=== PATIENT | female | born 1990 | race Caucasian/White ===

== ENCOUNTER 2016-12-22 09:59 | Emergency (ER) | payer MEDICAID, OTHER ==
[2016-12-22] MEDS ORDERED: Sodium Chloride 0.9% 1,000 ML IV STA (10:33)
[2016-12-22] MEDS ORDERED: Ondansetron 4 MG/2 ML SDV IVPUSH ONE (10:33)
[2016-12-22] MEDS ORDERED: HYDROmorphone 0.5 MG/0.5 ML Syringe IVPUSH ONE ×2 (10:34→12:53)
[2016-12-22] MEDS: Sodium Chloride 0.9% 10 ML Syringe FLUSH PRN ×2 (10:40→12:38)
[2016-12-22 11:17] VITALS: BP 114/72
--- NOTE | 2016-12-22 11:21 | EDM.PDOC ---
ED HPI GI/ABDOMINAL - General Chief Complaint: Abdominal Pain Stated Complaint: LOWER ABD PAIN Time Seen by Provider: 12/22/16 10:08 Source of Information: Reports: Patient History Limitations: Reports: No limitations - History of Present Illness INITIAL COMMENTS - FREE TEXT/NARRATIVE: The patient presents with left lower abdominal pain. This started a couple days ago. It is a constant pain. It is a sharp pain. She has some nausea but no vomiting. She has no diarrhea. She has no dysuria. She has no hematuria. She had a baby a few months ago and she is breast feeding. She is having normal bowel movements. Timing/Duration: Reports: Day(s): (2) Location: [facility] Quality: Reports: stabbing Severity: moderate Context: Denies: sick contact, bad/questionable food, out of country travel, recent surgery, recent trauma, lifting, activity/exercise Associated Symptoms (-Female): Reports: nausea/vomiting. Denies: back pain, constipation, diarrhea, fever/chills, loss of appetite - Related Data Allergies/ADRs: Allergies Allergy/AdvReac Type Severity Reaction Status Date / Time No Known Allergies Allergy Verified 12/22/16 10:16 Home Meds: Home Meds Acetaminophen [Tylenol Extra Strength] 1,000 mg PO Q4H PRN 12/22/16 [History] Ciprofloxacin HCl [Cipro] 500 mg PO BID #20 tablet 12/22/16 [Rx] Ondansetron [Zofran ODT] 4 mg PO Q6H PRN #20 tab.dis 12/22/16 [Rx] metroNIDAZOLE [Flagyl] 500 mg PO Q8H #30 tablet 12/22/16 [Rx] oxyCODONE HCl/Acetaminophen [Percocet 5-325 mg Tablet] 1 - 2 each PO Q6HR PRN # 20 tablet 12/22/16 [Rx] Past Medical History - Past Health History Medical/Surgical History: Denies Medical/Surgical History HEENT History: Reports: Other (see below) Other HEENT History: wisdom teeth removed. Gastrointestinal History: Reports: Diverticulosis, Other (see below) Other Gastrointestinal History: diverticulitis, gastric ulcers. 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: Endocrine/Metabolic History: Reports: Diabetes, gestational - Infectious Disease History Infectious Disease History: Reports: Chicken pox, Shingles - Past Surgical History HEENT Surgical History: Reports: Adenoidectomy Social & Family History - Family History Family Medical History: Noncontributory - Tobacco Use Smoking Status *Q: Never Smoker Second Hand Smoke Exposure: No - Caffeine Use Caffeine Use: Reports: Soda - Recreational Drug Use Recreational Drug Use: No ED ROS GENERAL - Review of Systems Review Of Systems: See Below Constitutional: Reports: no symptoms HEENT: Reports: No symptoms Respiratory: Reports: no symptoms Cardiovascular: Reports: No symptoms Endocrine: Reports: no symptoms GI/Abdominal: Reports: Abdominal pain, Nausea. Denies: Vomiting : Reports: no symptoms Musculoskeletal: Reports: no symptoms Skin: Reports: no symptoms Neurological: Reports: no symptoms ED EXAM, GI/ABD - Physical Exam Exam: See Below Exam Limited By: No limitations General Appearance: alert, no apparent distress Ears: normal external exam Nose: normal inspection Head: atraumatic, normocephalic Neck: normal inspection Respiratory/Chest: no respiratory distress, lungs clear, normal breath sounds Cardiovascular: regular rate, rhythm, no edema, no murmur GI/Abdominal: soft, no organomegaly, tenderness (Moderate pain upon palpation to the LLQ) Back Exam: normal inspection Extremities: normal inspection Course - Vital Signs Last Recorded V/S: Last Vital Signs Temp 97.6 F 12/22/16 10:05 Pulse 76 12/22/16 11:17 Resp 16 12/22/16 11:17 BP 114/72 12/22/16 11:17 Pulse Ox 99 12/22/16 11:17 - Orders/Labs/Meds Orders: Active Orders 24 hr Category Date Time Status Peripheral IV Care [RC] . DIRECTED Care 12/22/16 10:33 Active Sodium Chloride 0.9% [Saline Flush] Med 12/22/16 10:33 Active 10 ml FLUSH ASDIRECTED PRN ED Antiemetic Medication Reflex [OM.PC] Stat Oth 12/22/16 10:34 Ordered Peripheral IV Insertion Adult [OM.PC] Stat Oth 12/22/16 10:33 Ordered Medication Orders Sodium Chloride (Saline Flush) 10 ml FLUSH ASDIRECTED PRN PRN Reason: Keep Vein Open Last Admin: 12/22/16 12:38 Dose: 10 ml Admin: 12/22/16 10:40 Dose: 10 ml Labs: Laboratory Tests 12/22/16 12/22/16 12/22/16 Range/Units 10:30 10:40 10:40 WBC 11.37 H (3.98-10.04) K/mm3 RBC 4.93 (3.98-5.22) M/mm3 Hgb 14.2 (11.2-15.7) gm/L Hct 42.3 (34.1-44.9) % MCV 85.8 (79.4-94.8) fl MCH 28.8 (25.6-32.2) pg MCHC 33.6 (32.2-35.5) g/dl RDW Std Deviation 41.2 (36.4-46.3) fL Plt Count 270 (182-369) K/mm3 MPV 11.1 (9.4-12.3) fl Neut % (Auto) 77.9 H (34.0-71.1) % Lymph % (Auto) 12.1 L (19.3-51.7) % Nobles % (Auto) 8.8 (4.7-12.5) % Eos % (Auto) 0.8 (0.7-5.8) Baso % (Auto) 0.3 (0.1-1.2) % Neut # 8.86 H (1.56-6.13) K/mm3 Lymph # 1.38 (1.18-3.74) K/mm3 Nobles # 1.00 H (0.24-0.36) K/mm3 Eos # 0.09 (0.04-0.36) K/mm3 Baso # 0.03 (0.01-0.08) K/mm3 Sodium 142 (136-145) mEq/L Potassium 3.8 (3.5-5.1) mEq/L Chloride 106 (98-107) mEq/L Carbon Dioxide 26 (21-32) mEq/L Anion Gap 13.8 (5-15) BUN 12 (7-18) mg/dL Creatinine 0.8 (0.55-1.02) mg/dL Est Cr Clr Drug Dosing 94.21 mL/min Estimated GFR (MDRD) > 60 (>60) mL/min BUN/Creatinine Ratio 15.0 (14-18) Glucose 86 (74-106) mg/dL Calcium 8.7 (8.5-10.1) mg/dL Total Bilirubin 0.7 (0.2-1.0) mg/dL AST 11 L (15-37) U/L ALT 15 (14-59) U/L Alkaline Phosphatase 102 (46-116) U/L Total Protein 7.5 (6.4-8.2) g/dl Albumin 3.8 (3.4-5.0) g/dl Globulin 3.7 gm/dL Albumin/Globulin Ratio 1.0 (1-2) Lipase 78 (73-393) U/L HCG, Qual (NEGATIVE) Urine Color Yellow (Yellow) Urine Appearance Clear (Clear) Urine pH 6.0 (5.0-8.0) Ur Specific [place] > or = 1.030 (1.005-1.030) Urine Protein 1+ H (Negative) Urine Glucose (UA) Negative (Negative) Urine Ketones Negative (Negative) Urine Occult Blood Negative (Negative) Urine Nitrite Negative (Negative) Urine Bilirubin Negative (Negative) Urine Urobilinogen 0.2 (0.2-1.0) Ur Leukocyte Esterase Negative (Negative) Urine RBC Not seen (0-5) /hpf Urine WBC 0-5 (0-5) /hpf Ur Epithelial Cells 0-5 (0-5) /hpf Urine Bacteria Few (FEW) /hpf Urine Mucus Few (FEW) /hpf 12/22/16 Range/Units 10:40 WBC (3.98-10.04) K/mm3 RBC (3.98-5.22) M/mm3 Hgb (11.2-15.7) gm/L Hct (34.1-44.9) % MCV (79.4-94.8) fl MCH (25.6-32.2) pg MCHC (32.2-35.5) g/dl RDW Std Deviation (36.4-46.3) fL Plt Count (182-369) K/mm3 MPV (9.4-12.3) fl Neut % (Auto) (34.0-71.1) % Lymph % (Auto) (19.3-51.7) % [place]les % (Auto) (4.7-12.5) % Eos % (Auto) (0.7-5.8) Baso % (Auto) (0.1-1.2) % Neut # (1.56-6.13) K/mm3 Lymph # (1.18-3.74) K/mm3 [place]les # (0.24-0.36) K/mm3 Eos # (0.04-0.36) K/mm3 Baso # (0.01-0.08) K/mm3 Sodium (136-145) mEq/L Potassium (3.5-5.1) mEq/L Chloride (98-107) mEq/L Carbon Dioxide (21-32) mEq/L Anion Gap (5-15) BUN (7-18) mg/dL Creatinine (0.55-1.02) mg/dL Est Cr Clr Drug Dosing mL/min Estimated GFR (MDRD) (>60) mL/min BUN/Creatinine Ratio (14-18) Glucose (74-106) mg/dL Calcium (8.5-10.1) mg/dL Total Bilirubin (0.2-1.0) mg/dL AST (15-37) U/L ALT (14-59) U/L Alkaline Phosphatase (46-116) U/L Total Protein (6.4-8.2) g/dl Albumin (3.4-5.0) g/dl Globulin gm/dL Albumin/Globulin Ratio (1-2) Lipase (73-393) U/L HCG, Qual Negative (NEGATIVE) Urine Color (Yellow) Urine Appearance (Clear) Urine pH (5.0-8.0) Ur Specific [place] (1.005-1.030) Urine Protein (Negative) Urine Glucose (UA) (Negative) Urine Ketones (Negative) Urine Occult Blood (Negative) Urine Nitrite (Negative) Urine Bilirubin (Negative) Urine Urobilinogen (0.2-1.0) Ur Leukocyte Esterase (Negative) Urine RBC (0-5) /hpf Urine WBC (0-5) /hpf Ur Epithelial Cells (0-5) /hpf Urine Bacteria (FEW) /hpf Urine Mucus (FEW) /hpf Meds: Medications Generic Name Dose Route Start Last Admin Trade Name Freq PRN Reason Stop Dose Admin Sodium Chloride 10 ml 12/22/16 10:33 12/22/16 12:38 Saline Flush FLUSH 10 ml ASDIRECTED PRN Administration Keep Vein Open Discontinued Medications Generic Name Dose Route Start Last Admin Trade Name Freq PRN Reason Stop Dose Admin Diatrizoate Meglum/Diatrizoate Sod 120 ml 12/22/16 11:23 12/22/16 12:37 Gastrografin 37% PO 12/22/16 11:24 90 ml ONETIME ONE Administration Hydromorphone HCl 0.5 mg 12/22/16 10:34 12/22/16 10:46 Dilaudid IVPUSH 12/22/16 10:35 0.5 mg ONETIME ONE Administration Hydromorphone HCl 0.5 mg 12/22/16 12:53 12/22/16 12:58 Dilaudid IVPUSH 12/22/16 12:54 0.5 mg ONETIME ONE Administration Sodium Chloride 1,000 mls @ 1,000 mls/hr 12/22/16 10:33 12/22/16 10:48 Normal Saline IV 12/22/16 11:32 1,000 mls/hr .BOLUS STA Administration Iopamidol 150 ml 12/22/16 11:23 12/22/16 12:37 Isovue-300 (61%) IVPUSH 12/22/16 11:24 125 ml ONETIME ONE Administration Ondansetron HCl 4 mg 12/22/16 10:33 12/22/16 10:44 Zofran IVPUSH 12/22/16 10:34 4 mg ONETIME ONE Administration Sodium Chloride 10 ml 12/22/16 11:23 12/22/16 13:01 Saline Flush FLUSH 12/22/16 11:24 10 ml ONETIME ONE Administration - Re-Assessments/Exams Free Text/Narrative Re-Assessment/Exam: 12/22/16 11:24 I ordered an IV NS 1L bolus, zofran 4mg IV, and dilaudid 0.5mg IV. 12/22/16 13:21 Her WBC was elevated at 11.37. Her CMP looks good. Her HCG is negative. Her UA shows no UTI. She had more pain so I ordered more dilaudid 0.5mg IV. The CT shows bowel wall thickening and surrounding inflammatory change at the junction of the descending and sigmoid colon. Minimal diverticulosis seen in this area and fingings presumably due to diverticulitis. Recommend treatment as diverticulitis and endoscopy when patient's symptoms improved to make sure findings resovle and do not represent other etiology. I will get her on flagyl and cipro and some thing for pain. Departure - Departure Time of Disposition: 13:35 Disposition: Home, Self-Care 01 Condition: good Clinical Impression: Diverticulitis Qualifiers: Diverticulitis site: large intestine Diverticulitis bleeding: without bleeding Diverticulitis complication: without perforation or abscess Qualified Code(s): K57.32 - Diverticulitis of large intestine without perforation or abscess without bleeding Prescriptions: oxyCODONE HCl/Acetaminophen [Percocet 5-325 mg Tablet] 1 - 2 each PO Q6HR PRN # 20 tablet PRN Reason: Pain Ciprofloxacin HCl [Cipro] 500 mg PO BID #20 tablet Ondansetron [Zofran ODT] 4 mg PO Q6H PRN #20 tab.dis PRN Reason: Nausea/Vomiting metroNIDAZOLE [Flagyl] 500 mg PO Q8H #30 tablet Referrals: Elis Rivera, CR[employer] IRONER OPERATOR [Primary Care Provider] - 1 Week Forms: ED Department Discharge Additional Instructions: Take the medication as prescribed. Please return if you are worse. Follow up with Elis Rivera in 1 week. Do not nurse or pump and dump when taking the medications. - My Orders Last 24 Hours: My Active Orders 12/22/16 10:33 Peripheral IV Care [RC] . DIRECTED Sodium Chloride 0.9% [Saline Flush] 10 ml FLUSH ASDIRECTED PRN Peripheral IV Insertion Adult [OM.PC] Stat 12/22/16 10:34 ED Antiemetic Medication Reflex [OM.PC] Stat - Assessment/Plan Last 24 Hours: My Active Orders 12/22/16 10:33 Peripheral IV Care [RC] . DIRECTED Sodium Chloride 0.9% [Saline Flush] 10 ml FLUSH ASDIRECTED PRN Peripheral IV Insertion Adult [OM.PC] Stat 12/22/16 10:34 ED Antiemetic Medication Reflex [OM.PC] Stat
[2016-12-22] MEDS ORDERED: Sodium Chloride 0.9% 10 ML Syringe FLUSH ONE (11:23)
[2016-12-22] MEDS ORDERED: Iopamidol 612 MG/ML 150 ML Bottle IVPUSH ONE (11:23)
[2016-12-22] MEDS ORDERED: Diatrizoate Meglumine/Diatrizoate Sodium 37% 120 ML Bottle PO ONE (11:23)
--- NOTE | 2016-12-22 13:01 | CT ---
CT abdomen and pelvis Technique: Multiple axial sections were obtained from above the dome of the diaphragm inferiorly through the pubic symphysis. Intravenous and oral contrast was utilized. Delayed images were obtained through the bladder. Findings: Diffuse bowel wall thickening seen at the junction of the descending and sigmoid colon. Several diverticuli seen in this region and findings may relate to diverticulitis. Inflammatory change is seen around the sigmoid colon. Visualized lung bases are clear. Low-density lesion noted within the right lobe of the liver. Uncertain if this is a cyst or possibly small hemangioma. Liver is otherwise unremarkable. Spleen appears within normal limits. Adrenal glands show no nodule. Pancreas appears within normal limits. Aorta shows no aneurysmal dilatation. No retroperitoneal adenopathy or mesenteric abnormalities are seen. Appendix is seen which appears normal. No pelvic mass is seen. Free fluid seen within the pelvis which does not appear to be complicated and likely incidental. Delayed images show contrast within the distal ureters and within the bladder. Bone window settings were reviewed which appear within normal limits for the patient's age. Impression: 1. Bowel wall thickening and surrounding inflammatory change at the junction of the descending and sigmoid colon. Minimal diverticulosis seen in this area and findings presumably due to diverticulitis. Recommend treatment as diverticulitis and endoscopy when patient's symptoms improved to make sure findings resolve and do not represent other etiology. 2. Free fluid within the pelvis believed to be physiologic. 3. Other incidental findings as described above. Diagnostic code #3
== END 2016-12-22 13:41 | disposition home or self-care (01) ==
LOC: JD.ED 09:59
DX: K57.32 Diverticulitis of large intestine without perforation or abscess without bleeding (principal)
CPT/HCPCS: 36415; 74177; 80053; 81001; 83690; 84703; 85025; 96361; 96374; 96375; 96376; 99284; J1170; J2405; J7040; J7050; Q9963; Q9967

== ENCOUNTER 2017-07-26 02:23 | Emergency (ER) | payer OTHER ==
[2017-07-26] MEDS ORDERED: Alum Hydrox/Mag Hydrox/Simeth 30 ML, Lidocaine 2% 15 ML PO ONE ×2 (02:47)
--- NOTE | 2017-07-26 02:57 | EDM.PDOC ---
ED HPI GENERAL MEDICAL PROBLEM - General Chief Complaint: Chest Pain Stated Complaint: CHEST PAIN Time Seen by Provider: 07/26/17 02:34 Source of Information: Reports: Patient History Limitations: Reports: No Limitations - History of Present Illness INITIAL COMMENTS - FREE TEXT/NARRATIVE: This is a 26-year-old female. She says she's been seen multiple times here due to chest pain. All the workups have been negative thus far. Apparently she woke up this morning with a start, was anxious was breathing rapidly got numb in her arms and was experiencing epigastric chest pain. The chest pain does not radiate doesn't go into her arms and legs neck or jaw there is no sweating with it. After a few minutes apparently the symptoms seemed to subside and the chest pain subsided but she comes to the ER for evaluation. She has no history of anxiety but she does have a history of reflux especially when she was . She states she has a little residual of that epigastric pain even now. She does not appear to be anxious does not appear to be short of breath. No recent history of cold scoffs fever or chills nausea or vomiting. - Related Data Allergies Allergy/AdvReac Type Severity Reaction Status Date / Time No Known Allergies Allergy Verified 07/26/17 02:30 Home Meds: Home Meds Escitalopram [Lexapro] 10 mg PO DAILY 07/26/17 [History] Past Medical History - Past Health History Medical/Surgical History: Denies Medical/Surgical History HEENT History: Reports: Other (See Below) Other HEENT History: wisdom teeth removed. Gastrointestinal History: Reports: Diverticulosis, Other (See Below) Other Gastrointestinal History: diverticulitis, gastric ulcers. 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: Endocrine/Metabolic History: Reports: Diabetes, Gestational - Infectious Disease History Infectious Disease History: Reports: Chicken Pox, Shingles - Past Surgical History HEENT Surgical History: Reports: Adenoidectomy Social & Family History - Family History Family Medical History: Noncontributory - Tobacco Use Smoking Status *Q: Never Smoker Second Hand Smoke Exposure: No - Caffeine Use Caffeine Use: Reports: Soda - Recreational Drug Use Recreational Drug Use: No ED ROS GENERAL - Review of Systems Review Of Systems: See Below Constitutional: Denies: Fever, Chills HEENT: Reports: No Symptoms Respiratory: Reports: Shortness of Breath Cardiovascular: Reports: Chest Pain Endocrine: Reports: No Symptoms GI/Abdominal: Reports: No Symptoms : Reports: No Symptoms Musculoskeletal: Reports: No Symptoms Skin: Reports: No Symptoms Neurological: Reports: Other (Numbness in her upper extremities during the spells) Psychiatric: Reports: No Symptoms Hematologic/Lymphatic: Reports: No Symptoms ED EXAM, GENERAL - Physical Exam Exam: See Below Exam Limited By: No Limitations General Appearance: Alert, WD/WN, No Apparent Distress Eye Exam: Bilateral Eye: Normal Inspection Ears: Normal External Exam Nose: Normal Inspection Throat/Mouth: Normal Inspection, Normal Lips, Normal Voice, No Airway Compromise Head: Normocephalic Neck: Supple Respiratory/Chest: No Respiratory Distress, Lungs Clear, Normal Breath Sounds, Other (Palpation of the chest and the ribs does not cause any significant symptoms) Cardiovascular: Regular Rate, Rhythm, No Murmur GI/Abdominal: Soft, Non-Tender, Other (No area that I palpated including the right upper quadrant seems to be tender on palpation) Back Exam: Full Range of Motion Extremities: Normal Inspection, Normal Range of Motion Neurological: Alert, Oriented Psychiatric: Normal Affect, Normal Mood Skin Exam: Warm, Dry Course - Vital Signs Last Recorded V/S: Last Vital Signs Temp 96.3 F 07/26/17 02:26 Pulse 71 07/26/17 03:51 Resp 18 07/26/17 03:51 BP 112/75 07/26/17 03:51 Pulse Ox 98 07/26/17 03:51 - Orders/Labs/Meds Labs: Laboratory Tests 07/26/17 07/26/17 Range/Units 03:00 03:00 WBC 9.86 (3.98-10.04) K/mm3 RBC 4.67 (3.98-5.22) M/mm3 Hgb 13.5 (11.2-15.7) gm/L Hct 39.5 (34.1-44.9) % MCV 84.6 (79.4-94.8) fl MCH 28.9 (25.6-32.2) pg MCHC 34.2 (32.2-35.5) g/dl RDW Std Deviation 42.2 (36.4-46.3) fL Plt Count 290 (182-369) K/mm3 MPV 10.8 (9.4-12.3) fl Neut % (Auto) 68.8 (34.0-71.1) % Lymph % (Auto) 21.7 (19.3-51.7) % [place] % (Auto) 8.0 (4.7-12.5) % Eos % (Auto) 1.1 (0.7-5.8) Baso % (Auto) 0.3 (0.1-1.2) % Neut # (Auto) 6.78 H (1.56-6.13) K/mm3 Lymph # (Auto) 2.14 (1.18-3.74) K/mm3 [place] # (Auto) 0.79 H (0.24-0.36) K/mm3 Eos # (Auto) 0.11 (0.04-0.36) K/mm3 Baso # (Auto) 0.03 (0.01-0.08) K/mm3 Sodium 141 (136-145) mEq/L Potassium 3.7 (3.5-5.1) mEq/L Chloride 105 (98-107) mEq/L Carbon Dioxide 24 (21-32) mEq/L Anion Gap 15.7 H (5-15) BUN 12 (7-18) mg/dL Creatinine 0.8 (0.55-1.02) mg/dL Est Cr Clr Drug Dosing 94.21 mL/min Estimated GFR (MDRD) > 60 (>60) mL/min BUN/Creatinine Ratio 15.0 (14-18) Glucose 111 H (74-106) mg/dL Calcium 8.5 (8.5-10.1) mg/dL Total Bilirubin 0.4 (0.2-1.0) mg/dL AST 15 (15-37) U/L ALT 16 (14-59) U/L Alkaline Phosphatase 65 (46-116) U/L Troponin I < 0.017 (0.00-0.056) ng/mL Total Protein 7.2 (6.4-8.2) g/dl Albumin 3.8 (3.4-5.0) g/dl Globulin 3.4 gm/dL Albumin/Globulin Ratio 1.1 (1-2) Meds: Medications Discontinued Medications Generic Name Dose Route Start Last Admin Trade Name Freq PRN Reason Stop Dose Admin Al Hydroxide/Mg Hydroxide 30 0 ml 07/26/17 02:47 07/26/17 02:52 ml/ Lidocaine HCl 15 ml PO 07/26/17 02:48 45 ml ONETIME ONE Administration - Re-Assessments/Exams Free Text/Narrative Re-Assessment/Exam: 07/26/17 04:00 I spoke to the patient regarding the test results. I believe that at nighttime she is getting a little bit of reflux pain in the epigastric area which makes her awaken suddenly and in a panicked mode which turns into a true panic attack with the hyperventilation the feeling like she is going to and then the numbness and tingling in her upper extremities. I suggested to her placing some bricks at the head of the bed to kind of put to bed at a slight slant and also taking the Nexium prior to going to bed to see if that wouldn't stop some of this reflux that might be occurring this causing her to wake up with chest pain. She is already on medications for her panic attacks and was given 2 or 3 days ago from her family physician. Departure - Departure Time of Disposition: 04:01 Disposition: Home, Self-Care 01 Condition: Good Clinical Impression: Panic attacks Esophageal reflux Qualifiers: Esophagitis presence: without esophagitis Qualified Code(s): K21.9 - Gastro- esophageal reflux disease without esophagitis Anxiety disorder Qualifiers: Anxiety disorder type: unspecified anxiety disorder Qualified Code(s): F41.9 - Anxiety disorder, unspecified Referrals: Elis Rivera BAIL ATTACHER [Primary Care Provider] - Forms: ED Department Discharge Additional Instructions: Go to the pharmacy and get some [id number] Nexium and take a pill prior to going to bed, also get some bricks and put them underneath the legs of the head of the bed to make the head of the bed slightly slanted which will hopefully prevent any reflux while you're sleeping, take your medications for the panic attacks as per your family physicians instructions, return to the ER if needed
[2017-07-26 04:02] VITALS: BP 117/81
== END 2017-07-26 04:07 | disposition home or self-care (01) ==
LOC: JD.ED 02:23
DX: F41.0 Panic disorder [episodic paroxysmal anxiety] (principal); K21.9 Gastro-esophageal reflux disease without esophagitis; Z79.899 Other long term (current) drug therapy
CPT/HCPCS: 36415; 80053; 84484; 85025; 99285; A9270; 99284

== ENCOUNTER 2018-04-23 02:07 | Emergency (ER) | payer BC, OTHER ==
[2018-04-23 02:32] VITALS: BP 124/84
[2018-04-23] MEDS ORDERED: Ondansetron 4 MG/2 ML SDV IVPUSH ONE (04:01)
[2018-04-23] MEDS ORDERED: HYDROmorphone 0.5 MG/0.5 ML SYRINGE IVPUSH ONE (04:03)
[2018-04-23] MEDS ORDERED: Sodium Chloride 0.9% 1,000 ML IV SCH (04:15)
[2018-04-23] MEDS ORDERED: Diatrizoate Meglumine/Diatrizoate Sodium 37% 120 ML Bottle PO ONE (06:02)
[2018-04-23] MEDS ORDERED: Iopamidol 612 MG/ML 150 ML Bottle IVPUSH ONE (06:02)
--- NOTE | 2018-04-23 06:38 | CT ---
CT abdomen and pelvis Technique: Multiple axial sections were obtained from above the dome of the diaphragm inferiorly through the pubic symphysis. Intravenous and oral contrast was utilized. Delayed images were obtained through the bladder. Comparison: Prior CT abdomen and pelvis exam of 12/22/16. Findings: Focal bowel wall thickening is seen within the sigmoid colon. This is in an area of previous bowel wall thickening. Surrounding inflammatory change is seen in the area of bowel wall thickening. Diverticuli are seen in this area and findings are felt compatible with diverticulitis. Low-density lesion is identified within the liver which remains stable from prior exam and therefore incidental. Liver is otherwise unremarkable. Spleen appears within normal limits. Visualized lung bases are clear. Adrenal glands show no nodule. Pancreas is normal. Gallbladder contains no calcified gallstones. Small hiatal hernia is seen. Aorta shows no aneurysmal dilatation. No retroperitoneal adenopathy or mesenteric abnormalities are seen. No pelvic mass or adenopathy is seen. Small cyst is noted within the right ovary which is felt to be physiologic. Small amount of free fluid is seen within the cul-de-sac. Delayed images shows contrast within the distal ureters and bladder. Impression: 1. Findings compatible with recurrent diverticulitis within the sigmoid colon. Findings of diverticulitis are also noted on prior study in the same region. 2. Small liver lesion which is stable and therefore incidental. 3. Small amount of free fluid is seen within the pelvis. Diagnostic code #3
[2018-04-23] MEDS ORDERED: Levofloxacin 750 MG Tab PO STA (06:57)
[2018-04-23] MEDS ORDERED: metroNIDAZOLE 500 MG Tab PO ONE (06:58)
--- NOTE | 2018-04-23 07:05 | EDM.PDOC ---
ED HPI GENERAL MEDICAL PROBLEM - General Chief Complaint: Abdominal Pain Stated Complaint: LOWER ABDOMINAL AND BACK PAIN Time Seen by Provider: 04/23/18 03:53 Source of Information: Reports: Patient History Limitations: Reports: No Limitations - History of Present Illness INITIAL COMMENTS - FREE TEXT/NARRATIVE: The patient states that she has had lower abdominal pain, that radiates to her midline lower back, for the past 3 days. She had nausea tonight, but no emesis. No urinary symptoms. No recent fever. No constipation or diarrhea. The patient states that her symptoms are similar to when she had diverticulitis in the past. She has not tried any home medications or remedies, and has not sought medical evaluation for this. The patient's PCP is Nila Rivera. Lower Abdomen Pain Score (Numeric/FACES): 9 - Related Data Allergies Allergy/AdvReac Type Severity Reaction Status Date / Time No Known Allergies Allergy Verified 07/26/17 02:30 Home Meds: Home Meds Acetaminophen/HYDROcodone [Novinger 325-5 MG] 1 - 2 tab PO Q6H PRN #20 tablet 04/23 [Rx] FLUoxetine [PROzac] 10 mg PO DAILY 04/23/18 [History] Levofloxacin [Levaquin] 1 tab PO QAM #9 tab 04/23/18 [Rx] Levothyroxine [Synthroid] 50 mcg PO DAILY 04/23/18 [History] metroNIDAZOLE [Flagyl] 1 tab PO Q8H #29 tab 04/23/18 [Rx] Past Medical History Gastrointestinal History: Reports: Diverticulosis (diverticulitis), 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: Psychiatric History: Reports: Anxiety Endocrine/Metabolic History: Reports: Diabetes, Gestational, Hypothyroidism, Obesity/BMI 30+ - Infectious Disease History Infectious Disease History: Reports: Chicken Pox, Shingles - Past Surgical History HEENT Surgical History: Reports: Adenoidectomy, Oral Surgery ([place] teeth extraction) Social & Family History - Family History Family Medical History: Noncontributory - Tobacco Use Smoking Status *Q: Never Smoker - Caffeine Use Caffeine Use: Reports: Soda - Alcohol Use Alcohol Use History: No - Recreational Drug Use Recreational Drug Use: No - Living Situation & Occupation Living situation: Reports: , with Spouse, with Family (3 kids) Occupation: Unemployed ED ROS GENERAL - Review of Systems Review Of Systems: ROS reveals no pertinent complaints other than HPI. ED EXAM, GI/ABD - Physical Exam Exam: See Below Exam Limited By: No Limitations General Appearance: Alert, WD/WN, No Apparent Distress Eyes: Bilateral: Normal Appearance, EOMI Ears: Normal External Exam, Hearing Grossly Normal Nose: Normal Inspection, No Blood Throat/Mouth: Normal Inspection, Normal Lips, Normal Voice, No Airway Compromise Head: Atraumatic, Normocephalic Neck: Normal Inspection, Full Range of Motion Respiratory/Chest: No Respiratory Distress, Lungs Clear, Normal Breath Sounds, No Accessory Muscle Use Cardiovascular: Normal Peripheral Pulses, Regular Rate, Rhythm, No Gallop, No JVD, No Murmur, No Rub GI/Abdominal Exam: Normal Bowel Sounds, Soft, No Organomegaly, No Distention, No Abnormal Bruit, No Mass, Tender (Primarily in the left lower quadrant and suprapubically, but also to the left side of the abdomen. Nontender elsewhere.) (Female) Exam: Deferred Rectal (Female) Exam: Deferred Back Exam: Normal Inspection, Full Range of Motion. No: CVA Tenderness (L), CVA Tenderness (R) Extremities: Normal Inspection, Normal Range of Motion, No Pedal Edema, Normal Capillary Refill Neurological: Alert, Oriented, Normal Cognition, No Motor/Sensory Deficits Psychiatric: Normal Affect Skin Exam: Warm, Dry, Intact, Normal Color, No Rash Course - Vital Signs Last Recorded V/S: Last Vital Signs Temp 35.7 C 04/23/18 02:28 Pulse 80 04/23/18 02:28 Resp 18 04/23/18 02:28 BP 124/84 04/23/18 02:28 Pulse Ox 96 04/23/18 02:28 - Orders/Labs/Meds Labs: Laboratory Tests 04/23/18 04/23/18 04/23/18 Range/Units 04:30 04:30 04:30 WBC 12.92 H (3.98-10.04) K/mm3 RBC 4.87 (3.98-5.22) M/mm3 Hgb 13.7 (11.2-15.7) gm/L Hct 40.8 (34.1-44.9) % MCV 83.8 (79.4-94.8) fl MCH 28.1 (25.6-32.2) pg MCHC 33.6 (32.2-35.5) g/dl RDW Std Deviation 42.6 (36.4-46.3) fL Plt Count 303 (182-369) K/mm3 MPV 11.1 (9.4-12.3) fl Neutrophils % (Manual) 78 H (40-60) % Band Neutrophils % 0 (0-10) % Lymphocytes % (Manual) 12 L (20-40) % Atypical Lymphs % 1 % Monocytes % (Manual) 9 (2-10) % Eosinophils % (Manual) 0 L (0.7-5.8) % Basophils % (Manual) 0 L (0.1-1.2) Platelet Estimate Adequate Plt Morphology Comment Normal RBC Morph Comment Normal Sodium (136-145) mEq/L Potassium (3.5-5.1) mEq/L Chloride (98-107) mEq/L Carbon Dioxide (21-32) mEq/L Anion Gap (5-15) BUN (7-18) mg/dL Creatinine (0.55-1.02) mg/dL Est Cr Clr Drug Dosing mL/min Estimated GFR (MDRD) (>60) mL/min BUN/Creatinine Ratio (14-18) Glucose (74-106) mg/dL Calcium (8.5-10.1) mg/dL Total Bilirubin (0.2-1.0) mg/dL AST (15-37) U/L ALT (14-59) U/L Alkaline Phosphatase (46-116) U/L Total Protein (6.4-8.2) g/dl Albumin (3.4-5.0) g/dl Globulin gm/dL Albumin/Globulin Ratio (1-2) Lipase (73-393) U/L Urine Color Yellow (Yellow) Urine Appearance Clear (Clear) Urine pH 6.0 (5.0-8.0) Ur Specific [place] 1.025 (1.005-1.030) Urine Protein Negative (Negative) Urine Glucose (UA) Negative (Negative) Urine Ketones Negative (Negative) Urine Occult Blood Negative (Negative) Urine Nitrite Negative (Negative) Urine Bilirubin Negative (Negative) Urine Urobilinogen 0.2 (0.2-1.0) Ur Leukocyte Esterase Negative (Negative) Urine RBC 0-5 (0-5) /hpf Urine WBC 0-5 (0-5) /hpf Ur Epithelial Cells 0-5 (0-5) /hpf Urine Bacteria Rare (FEW) /hpf Urine Mucus Few (FEW) /hpf Urine HCG, Qual Negative (NEGATIVE) 04/23/18 Range/Units 04:30 WBC (3.98-10.04) K/mm3 RBC (3.98-5.22) M/mm3 Hgb (11.2-15.7) gm/L Hct (34.1-44.9) % MCV (79.4-94.8) fl MCH (25.6-32.2) pg MCHC (32.2-35.5) g/dl RDW Std Deviation (36.4-46.3) fL Plt Count (182-369) K/mm3 MPV (9.4-12.3) fl Neutrophils % (Manual) (40-60) % Band Neutrophils % (0-10) % Lymphocytes % (Manual) (20-40) % Atypical Lymphs % % Monocytes % (Manual) (2-10) % Eosinophils % (Manual) (0.7-5.8) % Basophils % (Manual) (0.1-1.2) Platelet Estimate Plt Morphology Comment RBC Morph Comment Sodium 139 (136-145) mEq/L Potassium 3.5 (3.5-5.1) mEq/L Chloride 105 (98-107) mEq/L Carbon Dioxide 25 (21-32) mEq/L Anion Gap 12.5 (5-15) BUN 9 (7-18) mg/dL Creatinine 1.0 (0.55-1.02) mg/dL Est Cr Clr Drug Dosing 74.69 mL/min Estimated GFR (MDRD) > 60 (>60) mL/min BUN/Creatinine Ratio 9.0 L (14-18) Glucose 105 (74-106) mg/dL Calcium 8.3 L (8.5-10.1) mg/dL Total Bilirubin 0.6 (0.2-1.0) mg/dL AST 11 L (15-37) U/L ALT 16 (14-59) U/L Alkaline Phosphatase 73 (46-116) U/L Total Protein 7.5 (6.4-8.2) g/dl Albumin 3.8 (3.4-5.0) g/dl Globulin 3.7 gm/dL Albumin/Globulin Ratio 1.0 (1-2) Lipase 78 (73-393) U/L Urine Color (Yellow) Urine Appearance (Clear) Urine pH (5.0-8.0) Ur Specific [place] (1.005-1.030) Urine Protein (Negative) Urine Glucose (UA) (Negative) Urine Ketones (Negative) Urine Occult Blood (Negative) Urine Nitrite (Negative) Urine Bilirubin (Negative) Urine Urobilinogen (0.2-1.0) Ur Leukocyte Esterase (Negative) Urine RBC (0-5) /hpf Urine WBC (0-5) /hpf Ur Epithelial Cells (0-5) /hpf Urine Bacteria (FEW) /hpf Urine Mucus (FEW) /hpf Urine HCG, Qual (NEGATIVE) Meds: Medications Discontinued Medications Generic Name Dose Route Start Last Admin Trade Name Freq PRN Reason Stop Dose Admin Diatrizoate Meglum/Diatrizoate Sod 90 ml 04/23/18 06:02 04/23/18 06:03 Gastrografin 37% PO 04/23/18 06:03 90 ml ONETIME ONE Administration Hydromorphone HCl 0.5 mg 04/23/18 04:03 04/23/18 04:30 Dilaudid IVPUSH 04/23/18 04:04 0.5 mg ONETIME ONE Administration Sodium Chloride 1,000 mls @ 150 mls/hr 04/23/18 04:15 04/23/18 04:29 Normal Saline IV 150 mls/hr ASDIRECTED YAMILKA Administration Iopamidol 120 ml 04/23/18 06:02 04/23/18 06:03 Isovue-300 (61%) IVPUSH 04/23/18 06:03 120 ml ONETIME ONE Administration Levofloxacin 750 mg 04/23/18 06:57 04/23/18 07:21 Levaquin PO 04/23/18 06:58 750 mg ONETIME STA Administration Metronidazole 500 mg 04/23/18 06:58 04/23/18 07:21 Flagyl PO 04/23/18 06:59 500 mg ONETIME ONE Administration Ondansetron HCl 4 mg 04/23/18 04:01 04/23/18 04:29 Zofran IVPUSH 04/23/18 04:02 4 mg ONETIME ONE Administration - Re-Assessments/Exams Free Text/Narrative Re-Assessment/Exam: 04/23/18 06:56 CT of the abdomen and pelvis with oral and IV contrast is read by Dr. Campos as: 1. Findings compatible with recurrent diverticulitis within the sigmoid colon. Findings of diverticulitis are also noted on prior study in the same region. 2. Small liver lesion which is stable and therefore incidental. 3. Small amount of free fluid is seen within the pelvis. 04/23/18 06:58 I have ordered Levaquin 750 mg po and Flagyl 500 mg po. 04/23/18 07:05 The above was discussed with the patient. I'm recommending that she take a low residue diet for the next few days, until she is feeling better. I will discharge her home with prescriptions for Levaquin and Flagyl, each for 10 days , along with oral Novinger. I will refer her to Dr. Womack, should her symptoms not improve. Departure - Departure Time of Disposition: 07:06 Disposition: Home, Self-Care 01 Condition: Good Clinical Impression: Acute diverticulitis - Discharge Information *PRESCRIPTION DRUG MONITORING PROGRAM REVIEWED*: Not Applicable *COPY OF PRESCRIPTION DRUG MONITORING REPORT IN PATIENT MARK: Not Applicable Prescriptions: Acetaminophen/HYDROcodone [Novinger 325-5 MG] 1 - 2 tab PO Q6H PRN #20 tablet PRN Reason: Pain (Severe 7-10) Levofloxacin [Levaquin] 1 tab PO QAM #9 tab metroNIDAZOLE [Flagyl] 1 tab PO Q8H #29 tab Instructions: Diverticulitis, [id number] Referrals: Elis Rivera NP [Primary Care Provider] - Donta Womack MD [Physician] - Forms: ED Department Discharge Additional Instructions: You were seen in the emergency room for 3 days of lower abdominal pain, along with nausea tonight. Workup in the ER included blood work, a urinalysis, a urine test, and a CT scan of your abdomen and pelvis. Your blood work and urine studies were unremarkable, however, the CT scan of your abdomen and pelvis confirmed that you have diverticulitis. You have been started on the antibiotics Levaquin and Flagyl. Prescriptions for Levaquin, Flagyl, and Novinger have been provided. Take one tablet of the antibiotic Levaquin every morning, starting tomorrow morning, 04/24/2018, as prescribed. Take one tablet of the antibiotic Flagyl every 8 hours, starting around 3:00 this afternoon, Marlo, 04/23/2018, as prescribed. Make sure that you finish the entire 10-day course of antibiotics, even though you may be feeling better. Take 1 to 2 tablets of the opioid pain reliever Novinger up to every 6 hours, as needed for pain. If you take Novinger, do not drive or operate heavy machinery for 10 hours afterwards. Novinger will likely cause constipation, so consider taking a stool softener. We recommend that you eat a low residue (low fiber) diet for the next 2 or 3 days, until you are feeling better, after which you can eat a normal diet. Stay adequately hydrated. If your symptoms fail to improve, please follow-up with the surgeon Dr. Womack. If any other problems, please do not hesitate to return to the ER.
== END 2018-04-23 07:33 | disposition home or self-care (01) ==
LOC: JD.ED 02:07
DX: K57.32 Diverticulitis of large intestine without perforation or abscess without bleeding (principal); E11.9 Type 2 diabetes mellitus without complications; E03.9 Hypothyroidism, unspecified; F41.9 Anxiety disorder, unspecified; Z79.899 Other long term (current) drug therapy
CPT/HCPCS: 36415; 74177; 80053; 81001; 81025; 83690; 85007; 85027; 96361; 96374; 96375; 99284; A9270; J1170; J2405; J7040; Q9963; Q9967

== ENCOUNTER 2019-02-23 20:39 | Emergency (ER) | payer BC, OTHER ==
[2019-02-23 20:49] VITALS: BP 141/93
[2019-02-23] MEDS ORDERED: Acetaminophen/HYDROcodone 325-5 MG Tab PO ONE (21:17)
--- NOTE | 2019-02-23 21:49 | EDM.PDOC ---
ED HPI GENERAL MEDICAL PROBLEM - General Chief Complaint: General Stated Complaint: INJURY TO FACE Time Seen by Provider: 02/23/19 21:12 Source of Information: Reports: Patient, RN Notes Reviewed - History of Present Illness INITIAL COMMENTS - FREE TEXT/NARRATIVE: 28-year-old female suffered softball injury to left face a short time ago. She got injured playing softball. She was playing shortstop and suffered difficulty catching a throw from the outfield. The softball bounced from the tip of her glove striking her in the left face. Upper immediate large hematoma. She has quite severe pain of the left midface. Visual difficulties. No intraoral injury or bleeding from the nose. Left Face/Facial Pain Score (Numeric/FACES): 9 - Related Data Allergies Allergy/AdvReac Type Severity Reaction Status Date / Time No Known Allergies Allergy Verified 02/23/19 20:48 Home Meds: Home Meds Levothyroxine [Synthroid] 50 mcg PO DAILY 04/23/18 [History] Past Medical History - Past Health History Medical/Surgical History: Denies Medical/Surgical History HEENT History: Reports: Other (See Below) Other HEENT History: wisdom teeth removed. Gastrointestinal History: Reports: Diverticulosis, PUD Other Gastrointestinal History: diverticulitis, gastric ulcers. 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: Psychiatric History: Reports: Anxiety Endocrine/Metabolic History: Reports: Diabetes, Gestational, Hypothyroidism, Obesity/BMI 30+ - Infectious Disease History Infectious Disease History: Reports: Chicken Pox, Shingles - Past Surgical History HEENT Surgical History: Reports: Adenoidectomy, Oral Surgery Social & Family History - Family History Family Medical History: Noncontributory - Tobacco Use Smoking Status *Q: Never Smoker Second Hand Smoke Exposure: No - Caffeine Use Caffeine Use: Reports: Coffee - Recreational Drug Use Recreational Drug Use: No - Living Situation & Occupation Living situation: Reports: , with Spouse, with Family (3 kids) Occupation: Unemployed ED ROS GENERAL - Review of Systems Review Of Systems: See Below Constitutional: Reports: No Symptoms HEENT: Reports: Other Respiratory: Denies: Shortness of Breath (Left facial pain and swelling) Cardiovascular: Denies: Chest Pain GI/Abdominal: Denies: Abdominal Pain, Nausea, Vomiting Skin: Reports: Bruising (Mild bruising inferior aspect left eye) Neurological: Reports: No Symptoms ED EXAM, GENERAL - Physical Exam Exam: See Below General Appearance: Alert, Moderate Distress Ears: Normal External Exam Nose: Normal Inspection Throat/Mouth: Normal Inspection Head: Facial Swelling (There is moderate swelling of the left mid face, quite severe tenderness) Neck: Supple Respiratory/Chest: No Respiratory Distress, Lungs Clear, Normal Breath Sounds Cardiovascular: Regular Rate, Rhythm Extremities: Normal Inspection Neurological: Alert, Oriented, No Motor/Sensory Deficits Skin Exam: Warm, Dry, Normal Color Course - Vital Signs Last Recorded V/S: Last Vital Signs Temp 96 F 02/23/19 20:46 Pulse 82 02/23/19 20:46 Resp 16 02/23/19 20:46 BP 141/93 H 02/23/19 20:46 Pulse Ox 99 02/23/19 20:46 - Orders/Labs/Meds Orders: Active Orders 24 hr Category Date Time Status Max Facial Sinus wo Cont [CT] Stat Exams 02/23/19 21:18 Taken Meds: Medications Discontinued Medications Generic Name Dose Route Start Last Admin Trade Name Liam PRN Reason Stop Dose Admin Hydrocodone Bitart/Acetaminophen 1 tab 02/23/19 21:17 02/23/19 21:26 [place] 325-5 Mg PO 02/23/19 21:18 1 tab ONETIME ONE Administration - Re-Assessments/Exams Free Text/Narrative Re-Assessment/Exam: 02/24/19 04:38 We did give her a hydrocodone for pain and with that she was resting much more comfortably at time of reexam. CT of face was negative for fracture. See radiology report for details. Discharge instructions as documented. Departure - Departure Time of Disposition: 23:11 Disposition: Home, Self-Care 01 Condition: Fair Clinical Impression: Facial contusion Qualifiers: Encounter type: initial encounter Qualified Code(s): S00.83XA - Contusion of other part of head, initial encounter - Discharge Information Instructions: Facial or Scalp Contusion, [id number] Referrals: Juan Carlos Cortez MD [Primary Care Provider] - Forms: ED Department Discharge Additional Instructions: Ice packs and elevation for swelling, rest, you may alternate Tylenol and ibuprofen as needed for discomfort. Follow up clinic as needed, return to ED as needed if symptoms worsening in any way - My Orders Last 24 Hours: My Active Orders 02/23/19 21:18 Max Facial Sinus wo Cont [CT] Stat - Assessment/Plan Last 24 Hours: My Active Orders 02/23/19 21:18 Max Facial Sinus wo Cont [CT] Stat
--- NOTE | 2019-02-24 07:11 | CT ---
CT facial bones Technique: Multiple axial sections of the facial bones were obtained from the mid mandible superiorly through the frontal sinuses. Reconstructed coronal and sagittal images were obtained. Intravenous contrast was not utilized. Findings: Soft tissue swelling is seen within the left cheek. Paranasal sinuses are clear. Right and left globes are symmetric. No facial bone fracture is identified. Impression: 1. Soft tissue swelling. 2. No acute bony abnormality is seen on facial CT study. Diagnostic code #2 I agree with preliminary report from [facility], finalized on 02/23/19, 10:49 PM Central Time
== END 2019-02-23 23:20 | disposition home or self-care (01) ==
LOC: JD.ED 20:39
DX: S00.83XA Contusion of other part of head, initial encounter (principal); E03.9 Hypothyroidism, unspecified; Z88.1 Allergy status to other antibiotic agents; Z79.899 Other long term (current) drug therapy; W21.07XA Struck by softball, initial encounter; Y93.64 Activity, baseball
CPT/HCPCS: 70486; 99283; A9270

== ENCOUNTER 2023-05-26 21:36 | Emergency (ER) | payer BC ==
[2023-05-26 21:46] VITALS: BP 132/93; PULSE 88
[2023-05-26] MEDS ORDERED: Lactated Ringers 1,000 ML IV ONE (22:54)
[2023-05-26 23:17] LABS: BASOPHILS ABSOLUTE AUTO 0.05 K/mm3 (0.01-0.08); BASOPHILS PERCENT AUTO 0.4 % (0.1-1.2); EOSINOPHILS ABSOLUTE AUTO 0.12 K/mm3 (0.04-0.36); HEMATOCRIT 41.3 % (34.1-44.9); IMMATURE GRAN ABSOLUTE AUTO 0.02 K/mm3 (0.00-0.10); IMMATURE GRAN PERCENT AUTO 0.2 % (<=1.0); LYMPHOCYTES ABSOLUTE AUTO 2.89 K/mm3 (1.18-3.74); MEAN CORPUSCULAR HEMOGLOBIN 29.2 pg (25.6-32.2); MEAN CORPUSCULAR HGB CONC 33.9 g/dl (32.2-35.5); MEAN PLATELET VOLUME 10.5 fl (9.4-12.3); MONOCYTES ABSOLUTE AUTO 0.92 K/mm3 (0.24-0.36); NEUTROPHILS ABSOLUTE AUTO 7.55 K/mm3 (1.56-6.13); NEUTROPHILS PERCENT AUTO 65.4 % (34.0-71.1); PLATELET COUNT,PLT 396 K/mm3 (182-369); WHITE BLOOD CELL COUNT,WBC 11.55 K/mm3 (3.98-10.04)
[2023-05-26 23:48] LABS: A/G RATIO 1.1 (1-2); ALBUMIN 4.1 g/dl (3.4-5.0); ANION GAP 15.4 (5-15); BILIRUBIN TOTAL 0.2 mg/dL (0.2-1.0); BUN/CREATININE RATIO 7.8 (14-18); CALCIUM 9.2 mg/dL (8.5-10.1); CREATININE 0.9 mg/dL (0.55-1.02); EST CRCL DRUG DOSING (CG) 79.25 mL/min; POTASSIUM,K 3.4 mEq/L (3.5-5.1); PROTEIN TOTAL,TP 7.9 g/dl (6.4-8.2)
[2023-05-26] MEDS ORDERED: Iopamidol 612 MG/ML 100 ML Bottle IVPUSH ONE (23:56)
== END 2023-05-27 01:00 | disposition home or self-care (01) ==
LOC: JD.ED 21:36
DX: E86.0 Dehydration (principal); R16.0 Hepatomegaly, not elsewhere classified; R11.0 Nausea; R10.11 Right upper quadrant pain
CPT/HCPCS: 36415; 74177; 80053; 83605; 84703; 85025; 96360; 99284; J7120; Q9967